=== PATIENT | male | born 1985 | race Caucasian/White ===

== ENCOUNTER 2025-03-18 20:48 | Inpatient (IN) | payer OTHER, SELFPAY ==
[2025-03-18] VITALS (13 sets, daily range): BP systolic 101–194; BP diastolic 58–121; BMI 33.9
[2025-03-18 16:17] LABS: Urine Character Clear (Clear)
[2025-03-18 16:20] LABS: Hematocrit 47.1 % (39.0-52.0); Hemoglobin 15.6 g/dL (13.0-18.0); Mean Corp Hgb Conc. 33.1 g/dL (33.0-37.0); Mean Corpuscular Volume 92.5 fL (80.0-94.0); Nucleated Red Blood Cells % 0 % (-); Platelet Count 242 10^3/uL (130-400); Red Cell Dist. Width 12.7 % (11.5-14.5)
[2025-03-18 16:33] LABS: Urine Red Blood Cell 0-2 /HPF (0-2); Urine Squamous Cell 0-2 /LPF (Few); Urine White Cell 0-2 /HPF (0-5)
[2025-03-18 16:35] LABS: ALT (SGPT) 55 U/L (0-50); AST (SGOT) 28 U/L (17-59); Albumin 5.2 g/dl (3.5-5.0); Alkaline Phosphatase 126 U/L (38-126); Blood Urea Nitrogen 15 mg/dl (9-20); Calcium 10.2 mg/dl (8.4-10.2); Carbon Dioxide 27 mmol/L (22-30); Chloride 102 mmol/L (98-107); Glucose 108 mg/dl (70-99); Potassium 4.3 mmol/L (3.5-5.1); Sodium 135 mmol/L (135-145); Total Protein 8.0 g/dl (6.3-8.2); eGFR > 60.00
[2025-03-18] MEDS: NSS 1000 IV ×2 (19:04→21:58)
[2025-03-18] MEDS: VALIUM INJECTION 5 MG IV ×3 (19:05→21:08)
[2025-03-18] MEDS: ZOFRAN 4 MG IV (19:05)
--- NOTE | 2025-03-18 19:18 | ED.GENMED ---
History of Present Illness
<Jose Oliva PA-C - Last Filed: 03/18/25 23:52>
General
Chief Complaint: Alcohol Problem
Source: patient
Time Seen by Provider: 03/18/25 18:16
History of Present Illness
History of Present Illness:
40-year-old male with past medical history of ADHD, anxiety, depression, chronic substance use presenting to the ER for evaluation looking for treatment for both alcohol and opioid abuse. Patient states that his last drink was last night and last
time using a Percocet was at least 2 nights ago. He notes that he has been using this heavily for about 3 to 4 months. He had already arranged for a bed at [facility] however due to a history of withdrawal seizures they recommended he come to the ER
for medical evaluation first. Patient endorses nausea but no active vomiting, tremors and feeling very anxious. No other concerns presently. Denies any SI or HI
Past History
<Jose Oliva PA-C - Last Filed: 03/18/25 23:52>
Past History
ED Past Medical History: Psychiatric (a/d, substance abuse on suboxone)
ED Past Surgical History: Orthopedic
Social History
Tobacco: Smoker
Alcohol: Chronic alcoholic
Drug: Marijuana and Narcotics
Personal: Single
Living: alone
Employment: Employed
Family History
Family History: Unable to obtain
Review of Systems
<Jose Oliva PA-C - Last Filed: 03/18/25 23:52>
Review of Systems
All Other Systems: ROS reviewed and negative except as documented in HPI and ROS
Phy Exam
<Jose Oliva PA-C - Last Filed: 03/18/25 23:52>
Physical Exam
Physical Exam:
GENERAL: Alert , in no apparent distress, anxious, tremulous, appears older than stated age
EYE: clear conjunctiva b/l
HEAD: NCAT
ENT: o/p clr, mmm.
CARDIAC: Regular rate and rhythm .
LUNGS: Clear breath sounds bilaterally, no acute respiratory distress, no wheezes/rales/rhonchi
ABDOMEN: Soft, without focal tenderness, no r/g, no cvat
NEUROLOGICAL: Alert and oriented
SKIN: Warm and dry, skin intact.
MUSCULOSKELETAL: No edema, well perfused.
PSYCH: Normal and appropriate interaction.
Scores
<Jose Oliva PA-C - Last Filed: 03/18/25 23:52>
Heart Failure Risk
Heart Failure Risk Score: Not Applicable
Heart Score for Chest Pain Patients
STEMI patient?: Not applicable
Withdrawal Assessment of Alcohol
Withdrawal Assessment Completed?: Yes
Nausea and Vomiting: Intermittent nausea with dry heaves
Tactile Disturbances: Mild itching, pins and needles, burning or numbness
Tremor: Moderate, with patient's arms extended
Auditory Disturbances: Not present
Paroxysmal Sweats: Beads of sweat obvious on forehead
Visual Disturbances: Not present
Anxiety: Mild anxiety
Headache, Fullness in Head: Not present
Agitation: Moderately fidgety and restless
Orientation and clouding of sensorium: Oriented and can do serial additions
Total CIWA Score: 19
Alcohol Withdrawal Medication Recommendation: Equal to MSAS Score 8-11. Lorazepam 1-2mg IV NOW & re-assess q1hr
<Hilario Alberto DO - Last Filed: 03/18/25 19:51>
Withdrawal Assessment of Alcohol
Total CIWA Score: 19
Alcohol Withdrawal Medication Recommendation: Equal to MSAS Score 8-11. Lorazepam 1-2mg IV NOW & re-assess q1hr
Course
<Jose Oliva PA-C - Last Filed: 03/18/25 23:52>
Orders/Labs/Results
Orders:
Orders
03/18/25 Dinner
Regular
At Your Request: Full Participation
Does patient need a safe tray?: No
03/18/25 16:03
Alcohol Urgent
Complete Blood Count/With Diff Urgent
Comprehensive Metabolic Panel Urgent
03/18/25 16:06
Fentanyl, Urine Urgent
Urinalysis Urgent
Date Specimen was Collected: 03/18/25
Time Specimen was Collected: 16:04
Urine Drug Abuse Screen Urgent
Date Specimen was Collected: 03/18/25
Time Specimen was Collected: 16:04
Urine Microscopic Urgent
Date Specimen was Collected: 03/18/25
Time Specimen was Collected: 16:04
03/18/25 18:51
0.9% Sodium Chloride 1000 ml [Nss] 1,000 ml IV BOLUS
Ondansetron Injectable [Zofran] 4 mg IV NOW STA
diazePAM [Valium Injection] 5 mg IV NOW STA
03/18/25 18:52
Electrocardiogram (*1) Urgent
Reason for Study: QTc Monitoring
EKG- Treatment ONCE
03/18/25 19:00
Alcohol Urgent
Magnesium Urgent
03/18/25 19:38
diazePAM [Valium Injection] 5 mg IV NOW STA
03/18/25 19:39
diazePAM [Valium Injection] 10 mg .ROUTE .STK-MED ONE
03/18/25 19:40
Clonidine [Catapres] 0.1 mg PO NOW STA
03/18/25 20:02
Electrocardiogram (*1) Routine
Reason for Study: QTc Monitoring
Comment: if not already done in ED
Naloxone [Narcan] 0.4 mg IV Q5MPRN PRN
Oxycodone [Roxicodone] 20 mg PO Q4HPRN PRN
Tizanidine [Zanaflex] 2 mg PO Q6HPRN PRN
Clinical Opioid Withdrawal Scale (COWS) Q4
Frequency:: now, Q4 hours x 24 hours, then PRN based on symptoms
03/18/25 20:03
Electrocardiogram (*1) Routine
Reason for Study: QTc Monitoring
Comment: if not already done in ED
03/18/25 20:06
Ipratropium/Albuterol Sulfate [Duoneb] 3 ml INH R NOW ONE
03/18/25 20:07
CR Chest - 2 Views Urgent
Comment:
Reason For Exam: wheezing
03/18/25 20:12
Xopenex Reason for Use As Directed
Reason for ordering Xopenex instead of Albuterol: tachycardia
03/18/25 20:13
FOLic ACID [Folvite] 1 mg 0.9% Sodium Chloride 50 ml [Nss] 50 ml IV DAILYPRN
03/18/25 20:14
MSAS SCORE As Directed
MSAS Score 0-4: Repeat MSAS every 2 hours until 0-4 for three consecutive assessments, then every 4 hours x 48
hours.
MSAS Score 5-7: For MILD withdrawl symptoms. Repeat MSAS and RASS every 2 hours
MSAS Score 8-11: For MODERATE withdrawal symptoms. Repeat MSAS and RASS every 1 hour. Consider ICU or IMU
level of care.
MSAS Score > 11: For SEVERE withdrawal symptoms. Repeat MSAS and RASS every 1 hour. Notify provider, consider
ICU level of care.
MSAS Additional Instructions: If no improvement or no decrease in score from severe to moderate within 12
hours, consult psychiatry
MSAS Notify Provider: Notify provider if patient requires more than 10 mg of Lorazepam in eight hour period.
03/18/25 20:17
Admit/Transfer Patient As Directed
Co-Sign Provider:
Level of Care: Inpatient admission
Assign to:: ICU
Physician / Group: leesa lino
Diagnosis: alcohol withdrawal/opiate withdrawal, chem bronchitis
Reason for Hospitalization: alcohol withdrawal/opiate withdrawal, chem bronchitis
Expected length of stay greater than two midnights?: Yes
ELOS- Estimated Length of Stay in days: 5
I certify the patient meets the requirements for IP care: Yes
Code Status As Directed
Resuscitation Status: Full Code
03/18/25 20:20
PRN Pain Medication Management As Directed
May give lesser potent ordered pain med per pt: Yes
preference::
Protocol:: Medication orders for pain may be administered in a
manner that supports deferring to patient preference
when the pt is:
- Requesting an ordered lesser potent pain medication.
Least to most potent pain medications are defined
as: acetaminophen < NSAID < tramadol < opioids
(morphine, oxycodone, hydromorphone).
- Requesting a lesser dose of the same medication IF
ORDERED.
- Requesting a less intrusive route of administration
if both routes are prescribed by the provider (PO <
IV).
03/18/25 20:21
Albuterol Nebs [Ventolin Nebules] 2.5 mg INH R NOW STA
03/18/25 20:23
Admin Prog Coord Consult Routine
Consulting Provider: Cr Borden
Was physician already notified: Yes
Reason for consult: etoh opiate withdrawal
03/18/25 20:24
B-Hydroxybutyrate Urgent
GGTP Urgent
Magnesium Urgent
Phosphorus Urgent
03/18/25 20:25
Add On- LAB Urgent
Tests Added?: FENTANYL URINE
03/18/25 21:00
Flush (0.9% Sodium Chloride) [Flush (Nss)] See Dose Instructions IV PER PROTOCOL
03/18/25 21:23
0.9% Sodium Chloride 1000 ml [Nss] 1,000 ml IV 100 mls/hr
Acetaminophen [Tylenol] 650 mg PO Q4HPRN PRN
Bisacodyl [Dulcolax] 10 mg RECTAL [id number] PRN
Docusate W/Senna [Senokot-S] 1 tablet PO BIDPRN PRN
Polyethylene Glycol Powder [Miralax] 17 grams PO DAILYPRN PRN
03/18/25 21:23
Activity As Directed
Activity Level: As Tolerated
Vital Signs As Directed
Frequency: Per unit guidelines
Pulse Ox/spot Check [RESP] Routine
Quantity: 1
DX Deep Vein Thrombosis Video Routine
03/19/25 00:00
Buprenorphine HCl [Belbuca] 300 mcg BUCCAL Q4
Oxycodone Controlled Release [Oxycontin (Controlled Release)] 40 mg PO Q8
Thiamine Injection 200 mg IV Q8
03/19/25 06:00
Complete Blood Count/With Diff IN AM
Comprehensive Metabolic Panel IN AM
Rpzya-Hhba-Hrxxtrn IN AM
03/19/25 08:00
FOLic ACID [Folvite] 1 mg PO DAILY
Ipratropium/Albuterol Sulfate [Duoneb] 3 ml INH R QID
03/19/25 18:00
Enoxaparin Sodium [Lovenox] 40 mg SC QPM
03/19/25 22:00
Buprenorphine [Subutex] 2 mg SL QID
03/20/25 06:00
Complete Blood Count/With Diff IN AM
Comprehensive Metabolic Panel IN AM
03/20/25 22:00
Buprenorphine [Subutex] 4 mg SL QID
03/21/25 00:00
Oxycodone Controlled Release [Oxycontin (Controlled Release)] 20 mg PO Q8
03/21/25 06:00
Complete Blood Count/With Diff IN AM
Comprehensive Metabolic Panel IN AM
03/21/25 20:02
Buprenorphine [Subutex] 2 mg SL Q4HPRN PRN
03/22/25 06:00
Complete Blood Count/With Diff IN AM
Comprehensive Metabolic Panel IN AM
03/22/25 08:00
Buprenorphine [Subutex] 8 mg SL BID@799,1999
Thiamine HCl [Vitamin B1] 100 mg PO BID
03/23/25 08:00
Buprenorphine [Subutex] 16 mg SL DAILY@0800
Abnormal Lab Results
03/18/25 03/18/25 03/18/25
16:03 16:06 20:24
WBC 11.6 H 10^3/uL
(4.8-10.8)
MPV 10.8 H fL
(7.4-10.4)
Absolute Neuts (auto) 8.8 H 10^3/uL
(1.4-6.5)
Absolute Monos (auto) 0.8 H 10^3/uL
(0.1-0.6)
Neutrophils % 75.7 H %
(42.2-75.2)
Lymphocytes % 15.3 L %
(20.5-51.1)
Glucose 108 H mg/dl
(70-99)
GGT 271 H U/L
(15-73)
ALT 55 H U/L
(0-50)
Albumin 5.2 H g/dl
(3.5-5.0)
Urine Albumin 1+ A
(Neg - Trace)
U Marijuana (THC) Screen Positive H
(Negative)
B-Hydroxybutyrate 0.47 H mmol/L
(0.02-0.27)
03/18/25 16:03
03/18/25 16:03
Vital Signs
Initial and Last Documented VS:
Initial Vital Signs
Temp
98.1 F
03/18/25 15:50
Last Documented Vital Signs
Temp Pulse Resp BP Pulse Ox
98.1 F 64 16 107/73 89
03/18/25 15:50 03/18/25 23:15 03/18/25 23:15 03/18/25 23:00 03/18/25 23:15
<Hilario Alberto, DO - Last Filed: 03/18/25 19:51>
Orders/Labs/Results
Orders:
Orders
03/18/25 Dinner
Regular
At Your Request: Full Participation
Does patient need a safe tray?: No
03/18/25 16:03
Alcohol Urgent
Complete Blood Count/With Diff Urgent
Comprehensive Metabolic Panel Urgent
03/18/25 16:06
Fentanyl, Urine Urgent
Urinalysis Urgent
Date Specimen was Collected: 03/18/25
Time Specimen was Collected: 16:04
Urine Drug Abuse Screen Urgent
Date Specimen was Collected: 03/18/25
Time Specimen was Collected: 16:04
Urine Microscopic Urgent
Date Specimen was Collected: 03/18/25
Time Specimen was Collected: 16:04
03/18/25 18:51
0.9% Sodium Chloride 1000 ml [Nss] 1,000 ml IV BOLUS
Ondansetron Injectable [Zofran] 4 mg IV NOW STA
diazePAM [Valium Injection] 5 mg IV NOW STA
03/18/25 18:52
Electrocardiogram (*1) Urgent
Reason for Study: QTc Monitoring
EKG- Treatment ONCE
03/18/25 19:00
Alcohol Urgent
Magnesium Urgent
03/18/25 19:38
diazePAM [Valium Injection] 5 mg IV NOW STA
03/18/25 19:39
diazePAM [Valium Injection] 10 mg .ROUTE .STK-MED ONE
03/18/25 19:40
Clonidine [Catapres] 0.1 mg PO NOW STA
03/18/25 20:02
Electrocardiogram (*1) Routine
Reason for Study: QTc Monitoring
Comment: if not already done in ED
Naloxone [Narcan] 0.4 mg IV Q5MPRN PRN
Oxycodone [Roxicodone] 20 mg PO Q4HPRN PRN
Tizanidine [Zanaflex] 2 mg PO Q6HPRN PRN
Clinical Opioid Withdrawal Scale (COWS) Q4
Frequency:: now, Q4 hours x 24 hours, then PRN based on symptoms
03/18/25 20:03
Electrocardiogram (*1) Routine
Reason for Study: QTc Monitoring
Comment: if not already done in ED
03/18/25 20:06
Ipratropium/Albuterol Sulfate [Duoneb] 3 ml INH R NOW ONE
03/18/25 20:07
CR Chest - 2 Views Urgent
Comment:
Reason For Exam: wheezing
03/18/25 20:12
Xopenex Reason for Use As Directed
Reason for ordering Xopenex instead of Albuterol: tachycardia
03/18/25 20:13
FOLic ACID [Folvite] 1 mg 0.9% Sodium Chloride 50 ml [Nss] 50 ml IV DAILYPRN
03/18/25 20:14
MSAS SCORE As Directed
MSAS Score 0-4: Repeat MSAS every 2 hours until 0-4 for three consecutive assessments, then every 4 hours x 48
hours.
MSAS Score 5-7: For MILD withdrawl symptoms. Repeat MSAS and RASS every 2 hours
MSAS Score 8-11: For MODERATE withdrawal symptoms. Repeat MSAS and RASS every 1 hour. Consider ICU or IMU
level of care.
MSAS Score > 11: For SEVERE withdrawal symptoms. Repeat MSAS and RASS every 1 hour. Notify provider, consider
ICU level of care.
MSAS Additional Instructions: If no improvement or no decrease in score from severe to moderate within 12
hours, consult psychiatry
MSAS Notify Provider: Notify provider if patient requires more than 10 mg of Lorazepam in eight hour period.
03/18/25 20:17
Admit/Transfer Patient As Directed
Co-Sign Provider:
Level of Care: Inpatient admission
Assign to:: ICU
Physician / Group: leesa lino
Diagnosis: alcohol withdrawal/opiate withdrawal, chem bronchitis
Reason for Hospitalization: alcohol withdrawal/opiate withdrawal, chem bronchitis
Expected length of stay greater than two midnights?: Yes
ELOS- Estimated Length of Stay in days: 5
I certify the patient meets the requirements for IP care: Yes
Code Status As Directed
Resuscitation Status: Full Code
03/18/25 20:20
PRN Pain Medication Management As Directed
May give lesser potent ordered pain med per pt: Yes
preference::
Protocol:: Medication orders for pain may be administered in a
manner that supports deferring to patient preference
when the pt is:
- Requesting an ordered lesser potent pain medication.
Least to most potent pain medications are defined
as: acetaminophen < NSAID < tramadol < opioids
(morphine, oxycodone, hydromorphone).
- Requesting a lesser dose of the same medication IF
ORDERED.
- Requesting a less intrusive route of administration
if both routes are prescribed by the provider (PO <
IV).
03/18/25 20:21
Albuterol Nebs [Ventolin Nebules] 2.5 mg INH R NOW STA
03/18/25 20:23
Admin Prog Coord Consult Routine
Consulting Provider: Cr Borden
Was physician already notified: Yes
Reason for consult: etoh opiate withdrawal
03/18/25 20:24
B-Hydroxybutyrate Urgent
GGTP Urgent
Magnesium Urgent
Phosphorus Urgent
03/18/25 20:25
Add On- LAB Urgent
Tests Added?: FENTANYL URINE
03/18/25 21:00
Flush (0.9% Sodium Chloride) [Flush (Nss)] See Dose Instructions IV PER PROTOCOL
03/18/25 21:23
0.9% Sodium Chloride 1000 ml [Nss] 1,000 ml IV 100 mls/hr
Acetaminophen [Tylenol] 650 mg PO Q4HPRN PRN
Bisacodyl [Dulcolax] 10 mg RECTAL [id number] PRN
Docusate W/Senna [Senokot-S] 1 tablet PO BIDPRN PRN
Polyethylene Glycol Powder [Miralax] 17 grams PO DAILYPRN PRN
03/18/25 21:23
Activity As Directed
Activity Level: As Tolerated
Vital Signs As Directed
Frequency: Per unit guidelines
Pulse Ox/spot Check [RESP] Routine
Quantity: 1
DX Deep Vein Thrombosis Video Routine
03/19/25 00:00
Buprenorphine HCl [Belbuca] 300 mcg BUCCAL Q4
Oxycodone Controlled Release [Oxycontin (Controlled Release)] 40 mg PO Q8
Thiamine Injection 200 mg IV Q8
03/19/25 06:00
Complete Blood Count/With Diff IN AM
Comprehensive Metabolic Panel IN AM
Akaei-Vrrt-Vhouimj IN AM
03/19/25 08:00
FOLic ACID [Folvite] 1 mg PO DAILY
Ipratropium/Albuterol Sulfate [Duoneb] 3 ml INH R QID
03/19/25 18:00
Enoxaparin Sodium [Lovenox] 40 mg SC QPM
03/19/25 22:00
Buprenorphine [Subutex] 2 mg SL QID
03/20/25 06:00
Complete Blood Count/With Diff IN AM
Comprehensive Metabolic Panel IN AM
03/20/25 22:00
Buprenorphine [Subutex] 4 mg SL QID
03/21/25 00:00
Oxycodone Controlled Release [Oxycontin (Controlled Release)] 20 mg PO Q8
03/21/25 06:00
Complete Blood Count/With Diff IN AM
Comprehensive Metabolic Panel IN AM
03/21/25 20:02
Buprenorphine [Subutex] 2 mg SL Q4HPRN PRN
03/22/25 06:00
Complete Blood Count/With Diff IN AM
Comprehensive Metabolic Panel IN AM
03/22/25 08:00
Buprenorphine [Subutex] 8 mg SL BID@0800,2000
Thiamine HCl [Vitamin B1] 100 mg PO BID
03/23/25 08:00
Buprenorphine [Subutex] 16 mg SL DAILY@0800
Abnormal Lab Results
03/18/25 03/18/25 03/18/25
16: 16:06 20:24
WBC 11.6 H 10^3/uL
(4.8-10.8)
MPV 10.8 H fL
(7.4-10.4)
Absolute Neuts (auto) 8.8 H 10^3/uL
(1.4-6.5)
Absolute Monos (auto) 0.8 H 10^3/uL
(0.1-0.6)
Neutrophils % 75.7 H %
(42.2-75.2)
Lymphocytes % 15.3 L %
(20.5-51.1)
Glucose 108 H mg/dl
(70-99)
GGT 271 H U/L
(15-73)
ALT 55 H U/L
(0-50)
Albumin 5.2 H g/dl
(3.5-5.0)
Urine Albumin 1+ A
(Neg - Trace)
U Marijuana (THC) Screen Positive H
(Negative)
B-Hydroxybutyrate 0.47 H mmol/L
(0.02-0.27)
03/18/25 16:03
03/18/25 16:03
Vital Signs
Initial and Last Documented VS:
Initial Vital Signs
Temp
98.1 F
03/18/25 15:50
Last Documented Vital Signs
Temp Pulse Resp BP Pulse Ox
98.1 F 64 16 107/73 89
03/18/25 15:50 03/18/25 23:15 03/18/25 23:15 03/18/25 23:00 03/18/25 23:15
<Jose Oliva PA-C - Last Filed: 03/18/25 23:52>
MDM/Problems Addressed
Differential Diagnosis Includes:
Acute ETOH/Opiate withdrawal
Electrolyte imbalane
Dehydration
Cardiac Dysrhythmia
MDM/Problems Addressed:
40-year-old male presenting to the ER for evaluation of substance abuse withdrawal. History of alcohol related withdrawal seizures. He has already obtained a bed at [facility] but they were concerned for an acute withdrawal and potential for seizures
so sent him to the ER to be further evaluated. Current CIWA score of 19. Will treat with IV valium, Zofran and IVF. If stabilizes will attempt to get directly to his pre-arrainged substance abuse inpatient treatment
Chronic conditions affecting care: Other (Alcohol/substance abuse)
Acute Exacerbation and/or Progression of Chronic Illness: Other (Alcohol/substance abuse)
<Jose Oliva PA-C - Last Filed: 03/18/25 23:52>
*Pulse Oximetry
SaO2: 96
Oxygen Mode of Delivery: Room air
Patient hypoxic: no
*EKG
Interpreted by ED Provider?: Yes
Heart Rate: 73
Rate: normal
Rhythm: sinus
Ischemia: no ischemia
*Laminating Machine Operator Interpretation
Rate: normal
Heart Rate: 81
Rhythm: sinus
*Critical Care Note
Total Time (30-74mins, 75-104mins- exclusive of procedures): 32
comment:
Critical care statement: A total of 32 minutes of critical care time was provided for this patient. This includes management of unstable vital signs, evaluation of the patient at bedside, reviewing the patient's pertinent medical records, discussion
with consultants, review of old EKGs and review of pertinent medical records. This time with separate from time utilized to perform the aforementioned documented procedures
Data Reviewed
Review of Other/Old Records Reveals: Labs, Records and Discharge Summary
<Jose Oliva PA-C - Last Filed: 03/18/25 23:52>
Patient Management
Discussion with other providers: Hospitalist
Escalation/DeEscalation of care consider admission/obs:
Despite initial medications patient remains in significant withdrawal. Additional 5 mg of Valium ordered. Due to concern for further withdrawals and history of seizure will plan for admission. Hospitalist team aware and accepts.
ED Attending Note
<Jsoe Oliav PA-C - Last Filed: 03/18/25 23:52>
-
Portions of this chart may have been created with voice recognition software.� Occasional wrong word or��sound alike� substitutions may have occurred due to the inherent limitations of voice recognition software.
<Hilario Alberto DO - Last Filed: 03/18/25 19:51>
ED Attending Note
Patient seen and examined by attending physician: Yes
I performed the substantive portion of visit, reviewed & personally made and approve the management plan that is documented in note by myself or GINO.: Yes
ED Attending Note:
I have seen and evaluated the patient with a [id number] encounter. I have spoken to the advance practicer provider and involved in the medical history, the physical exam, medical decision making.
Evaluation and management service: agree unless noted differently below.
Results interpretation: agree unless noted differently below.
Focused HPI: 40-year-old male presenting to the requesting detox. Patient presents in alcohol withdrawal
Physical exam: Very tremulous and anxious. Tachycardic
Medical Decision Making: Patient required multiple doses of Valium intravenously. Patient will require admission for significant alcohol withdrawal.
Discharge Plan
Departure
Patient Disposition: Admit
Date of Disposition: 03/18/25
Time of Disposition: 19:39
Presentation/result/management discussed w/ accepting MD/DO: Hospitalist
Discharge Problem:
Alcohol withdrawal, Opiate withdrawal
Interventions
Interventions:
*Risk Screen - Suicide Last Done: 03/18/25 16:18
*General Assessment Last Done: 03/18/25 19:08
*Neglect/Abuse Screening Last Done: 03/18/25 19:08
*ED- Fall Risk Assessment Last Done: 03/18/25 19:08
*ED COVID-19 Vaccine History Last Done: 03/18/25 19:08
*ED Influenza Vaccine History Last Done: 03/18/25 19:08
*Nursing Disposition Last Done: 03/18/25 21:33
ED- Neurological Assessment Last Done: 03/18/25 19:08
ED-Psychological Assessment Last Done: 03/18/25 19:08
Discharge Date and Time
Discharge Date/Time: 03/18/25 21:34
--- NOTE | 2025-03-18 19:43 | W.PN.UPDATE ---
Update Note
Progress Note Update
This note serves as an addendum to the H&P by seed trucker Gera Gruber
HPI
40M current smoker HX WD Sz, chronic polysubstance use disorder, chr Suboxone, ETOH use disorder, HX ADHD, anxiety, depression seen at ER:
- for evaluation looking for treatment for both alcohol and opioid abuse.
- last drink was last night and last time using a Percocet was at least 2 nights ago. He notes that he has been using this heavily for about 3 to 4 months.
- reports nausea
- no active vomiting
- tremors and feeling very anxious.
Denies any SI or HI
Relevant VS
03/18/25
15:50 03/18/25
18:48 03/18/25
19:00
Temp route: Oral
Pulse 75
Resp Rate 19
Blood pressure 194/110 159/115
SaO2 96
Oxygen Mode of Delivery RA
PE
Not toxic looking
Gen: anxious, Nervous , Tremulous
HEENT:anicteric
Neck: supple
Lungs: diffuse I/E wheeze
Cor: Not tachycardic
Abdomen:�soft
STOCK SPECULATOR: AAO3
Psych: anxious
Relevant Data
03/18/25
16:03
WBC 11.6 H
Hgb 15.6
MCV 92.5
Plt Count 242
03/18/25 03/18/25
16:03 19:00
Sodium 135
Potassium 4.3
Chloride 102
Carbon Dioxide 27
BUN 15
Creatinine 0.8
eGFR > 60.00
Calcium 10.2
Magnesium 2.2
Total Bilirubin 0.5
AST 28
ALT 55 H
Alkaline Phosphatase 126
03/18/25 03/18/25
16:06 19:00
Ur Buprenorphine Negative
Ur Amphetamines Screen Negative
U Methamphetamines Scrn Negative
U Benzodiazepines Scrn Negative
Urine Cocaine Screen Negative
U Marijuana (THC) Screen Positive H
Alcohol, Quantitative None detected
EKG
NORMAL SINUS RHYTHM
NORMAL ECG
WHEN COMPARED WITH ECG OF 09-Mar-2023 19:51,NO SIGNIFICANT CHANGE WAS FOUND
Last hospitalist admission: 03/09/23 - 03/12/23
Principal Diagnosis: ETOH withdrawal
ASSESSMENT & PLAN
Pending Rx reconciliation
Early ETOH withdrawal syndrome : high risk for seizures/DTs
HX ETOH WD seizures
- close monitoring at ICU
- cont MSAS
- start phenobarbital protocol
- thiamine, folate, MVI
- [employer]ista and Psych consult
HX chr poly Substance abuse - with suspect Opiate WDS
- reports using on line ordered KRATOM ( Opiate receptor binding agent _ Mitragynine & 7 hydroxytetracycline ) which substitute for Percocet 30mg ( used 120 to 150mg daily)
- Inpatient Opiates WD protocol- Microinduction of Buprenorphine
Acute reactive AW dz probably chemical bronchitis with bronchospasm
- Wheezing
- Vaping Marijuana
- CXR
- Neb Xopenex PRN
DVT prophylaxis-On Lovenox
Code: Full
ICU
Total Critical Care Time__45___ minutes.
I was immediately available to the patient and staff. I personally examined, reviewed labs, diagnostic images/reports, interpretations, treatment plans, discussed patient care with other providers and family or caregivers (if patient is unable to
make decisions), entered orders as appropriate and documented the medical record.
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
[2025-03-18 19:46] LABS: Magnesium 2.2 mg/dl (1.6-2.3)
[2025-03-18] MEDS: CATAPRES 0.1 MG PO (19:49)
[2025-03-18 21:06] LABS: GGTP 271 U/L (15-73); Magnesium 2.0 mg/dl (1.6-2.3)
[2025-03-18] MEDS: NICODERM TRANSDERMAL 21 MG TRANSDERM (21:51)
[2025-03-18] MEDS: PHENOBARBITAL 104 MG IV (21:59)
--- NOTE | 2025-03-18 23:24 | PTCARENOTE ---
on assessment pt AAOx3, restless, denies chest pain, c/o SOB at rest, pt 94% RA, nebs ordered, reg diet, nauseous at times, no vomiting, COWS 18 and MSAS 8, report given to DNA ANALYST, call camargo in reach
[2025-03-19] VITALS (33 sets, daily range): BP systolic 91–151; BP diastolic 45–112
[2025-03-19 00:40] LABS: COVID-19 Antigen Negative (Negative)
[2025-03-19] MEDS: VALIUM INJECTION 5 MG IV ×4 (00:49→21:07)
[2025-03-19] MEDS: ZOFRAN 4 MG IV (00:50)
[2025-03-19] MEDS: SEROQUEL 200 MG PO ×2 (01:46→22:28)
[2025-03-19] MEDS: ROXICODONE 20 MG PO ×4 (01:46→14:30)
[2025-03-19] MEDS: BELBUCA 300 MCG BUCCAL ×6 (05:05→20:35)
[2025-03-19] MEDS: NSS 1000 IV ×2 (05:58→16:32)
[2025-03-19 06:19] LABS: Hematocrit 43.7 % (39.0-52.0); Hemoglobin 14.4 g/dL (13.0-18.0); Mean Corp Hgb Conc. 33.0 g/dL (33.0-37.0); Mean Corpuscular Volume 93.0 fL (80.0-94.0); Nucleated Red Blood Cells % 0 % (-); Platelet Count 179 10^3/uL (130-400); Red Cell Dist. Width 12.6 % (11.5-14.5)
[2025-03-19 06:20] LABS: ALT (SGPT) 40 U/L (0-50); AST (SGOT) 23 U/L (17-59); Albumin 4.4 g/dl (3.5-5.0); Alkaline Phosphatase 87 U/L (38-126); Blood Urea Nitrogen 14 mg/dl (9-20); Calcium 9.1 mg/dl (8.4-10.2); Carbon Dioxide 27 mmol/L (22-30); Chloride 107 mmol/L (98-107); Estimated Creatinine Clearance > 125 ml/min; Glucose 95 mg/dl (70-99); Potassium 4.3 mmol/L (3.5-5.1); Sodium 140 mmol/L (135-145); Total Protein 6.6 g/dl (6.3-8.2); eGFR > 60.00
[2025-03-19] MEDS: DUONEB 3 ML INH (07:52)
[2025-03-19] MEDS: OXYCONTIN (CONTROLLED RELEASE) 40 MG PO ×3 (08:18→16:30)
[2025-03-19] MEDS: FOLVITE 1 MG PO (08:18)
[2025-03-19] MEDS: THIAMINE INJECTION 200 MG IV ×3 (08:19→16:31)
[2025-03-19] MEDS: PHENOBARBITAL 97.5 MG IV ×3 (08:19→22:29)
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
--- NOTE | 2025-03-19 11:48 | PTCARENOTE ---
Pt frequently requesting PRN meds for 'the shakes', Reviewed meds with pt. Discussed standing meds and PRN meds ordered. PRN meds given when able. Pt remains cooperative, assessment unchanged.
--- NOTE | 2025-03-19 11:59 | CS.PSYCHR ---
Consult Summary - Psychiatry
-
Patient seen by me on 03/19/2025 from 11:40am-11:59am
Psychiatry consult for severe alcohol/opiate use disorder and withdrawal. 40 yo male admitted 03/18/2025 for alcohol and opiate withdrawal. The patient reports he has been drinking 1/5 of vodka a day +8 shots of vodka along with Kratom 1 tab every 3
hours totaling 640 mg a day when he is unable to get his Percocet 30 mg 4 to 5 tablets 120 to 150 mg/day. He also vapes marijuana and smokes cigarettes. His last drink use was morning of 03/18/2025. Patient states he has a bed being held for his at
[facility] rehab but that he needs to be detoxed first. He states alcohol and opiates are jeopardizing his finances, job, relationship with his daughter and that he needs to get clean. His longest clean time was [id number] during which time he did AA
and kept a busy schedule. His last rehab was a year ago and he states he did well for a while on Sublocade but then relapsed.
He reports a history of bipolar disorder and being prescribed prozac and seroquel in the past but says he has not taken it them in a long time and does not know the doses. he acknowledges the difficulty in identifying and treating a mood disorder in
the context of active D&A use.
MSE- good eye contact. fluent spontaneous speech. logical and goal directed. depressed mood. constricted affect. denies SI/HI/AVH. no delusions. limited insight and judgement. fully oriented
PMH- alcohol and opiate withdrawal
family history- denies family substance abuse history
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 has two daughters agest 8 and 11, only one of whom is in his life
Psych history- see HPI
D&A history- see HPI
A/P- 40 yo male with severe alcohol and opiate use disorder and withdrawal as well as bipolar disorder history. Continue current withdrawal protocols. Appropriate candidate for inpatient rehab when medically stable. Has bed being held at [facility].
Would not start any psychiatric medications without a proper assessment/diagnosis once patient is sober.
[2025-03-19] MEDS: PRECEDEX 100 IV ×2 (13:55→22:36)
--- NOTE | 2025-03-19 14:13 | PTCARENOTE ---
Pt continues to ask for PRN meds, nothing due at the time. Increased anxiety, Dr. Borden in to see pt. Precedex gtts ordered and started
--- NOTE | 2025-03-19 15:13 | CM ---
Met with patient who says he has contacted [facility] to go for drug and alcohol inpatient treatment. He says he has bed in [facility]. Discussed [facility] in [place]. He would like to go there if possible as it is close to his family in
[place]. Spoke to [facility] intake. Per [facility] staff no detox at [place] site and they felt insurance would not pay for detox again since it is being addressed inpatient at . CLinical to be faxed to [phone] or emailed to
[email or web address] to fax clinical today. Cm updated attending verbally.
[facility]
--- NOTE | 2025-03-19 16:38 | W.PN.HOSP.TC ---
Addendum entered and electronically signed by Kylah Almodovar MD 03/19/25 17:52:
I saw and evaluated the patient independently. I reviewed and discussed the resident�s note and agree with findings and plan as documented by Dr. Penaloza.
GENERAL: well developed, well nourished, male in no apparent distress
HEENT: NC/AT
HEART: regular rate and rhythm, +S1, +S2
LUNGS : wheezes bilaterally
ABDOM: soft, nontender, nondistended, + bowel sounds
EXT: no cyanosis, clubbing, or edema
NEUROLOGIC: tremors and restless
Chronic alcohol abuse/dependency with withdrawal symptoms--cont MSAS, thiamine, folate, IVF, antiemetics--daily / of vodka--phenobarbital taper--want inpt detox and has a bed at [facility]--started Precedex--apprec psych/auto radiator specialist
Opioid dependency with withdrawal symptoms due to kratom, Percocet use--cont COWS protocol and buprenorphine microdosing (pt takes 4-5 pills of 30mg oxycodone daily, plus Kratom)--Imodium, zofran, clonidine--watch QTc
Left upper quadrant abdominal pain associated with diarrhea-- Abdominal x-ray shows nonobstructive intestinal bowel gas pattern, widespread colonic stool --cancel Imodium and order MiraLAX + senna
Diffuse wheezing bilaterally--likely from smoking/vaping--cont duonebs, IS
Nicotine abuse-- Continue on nicotine patch--Dr. Penaloza counselled pt to quit smoking
Marijuana abuse-- Counseled on marijuana cessation
DVT proph
code status--FULL CODE
Original Note:
Today's Communication/Plan
-
monitor labs, monitor for withdrawal symptoms, monitor COWS score
Assessment / Plan
Assessment / Plan
Chronic alcohol abuse with mild withdrawal symptoms:
-Patient drinks whole bottle of vodka every day
- Has fine tremors on physical examination and seems anxious
- Continue patient on MSAS protocol
- Thiamine, folate, IV fluids, phenobarbital taper
- Monitor electrolytes,
- Regular diet
-Keep potassium above 4 and magnesium above 2
-Patient started on Precedex drip by auto radiator specialist for tremors and hypertension, will wean off as he clinically improves
- Consulted psychiatrist
- Intensivisit following
Opioid withdrawal symptoms due to kratom, Percocet use:
- Monitor COWS score every day, on arrival to ED it was 15 today it is 5 indicating mild withdrawal
- Continue microdosing buprenorphine
- For symptoms of opioid withdrawal such as diarrhea use loperamide, for nausea vomiting use Zofran, clonidine for autonomic hyperactivity
- Oxycodone as needed for pain
- Zanaflex as needed for diaphoresis and restlessness
Left upper quadrant abdominal pain associated with diarrhea:
- There is mild tenderness to left upper quadrant abdominal palpation
- Abdominal x-ray shows nonobstructive intestinal bowel gas pattern, widespread colonic stool which is consistent with overflow diarrhea due to retained stool, will cancel loperamide and order MiraLAX + senna
- Continue patient on IV fluids
Diffuse wheezing bilaterally:
- Differential diagnosis is asthma versus COPD versus bronchitis
- Encouraged incentive spirometer
- Ordered DuoNebs for patient to help relieve bronchoconstriction
Nicotine abuse:
- Continue on nicotine patch
Marijuana abuse:
- Counseled on marijuana cessation
Anticipated Discharge: 24 - 48 hours
Subjective/Interval History
-
Date of Service: March 19, 2025
40-year-old male with ADHD, anxiety, depression, chronic polysubstance abuse presents to the emergency room for alcohol and opioid detox. He said that his drinking was out of control. Last drink was 2 nights ago. He usually drinks a full bottle
of vodka every day along with kratom 1 tab every 3 hours when he is unable to get his hands on Percocet 100 2250 mg a day which is equivalent to 4 to 5 tablets. He also smokes 1 to 2 pack of cigarettes a day and occasionally marijuana as well. He
has been in rehab before for substance abuse in [place]. He has had withdrawal symptoms including multiple grand mal seizures before when he quit drinking alcohol although he cannot remember the exact dates. He has overdosed 2 times on heroin. He
does not know if he has any other medical conditions and does not know if he has been vaccinated for hepatitis B and C. On admission his GGT was elevated, chest x-ray was normal, EKG showed normal sinus rhythm. He was given 1 L normal send 0.9%, 5
mg diazepam, 0.1 mg clonidine, 4 mg Zofran. Patient states that he has a bed available at [facility] [place] [facility] for inpatient rehab, he just needs to be medically cleared here.
Today patient complains of mild tremors, watery diarrhea with abdominal pain, wheezing. No fever lacrimation, diarrhea, weight loss, hallucinations, altered mental status, weakness, numbness.
Objective Data
-
Labs:
Laboratory Results
03/19/25
05:49
WBC 5.8
Hgb 14.4
Hct 43.7
Plt Count 179 D
Sodium 140
Potassium 4.3
Chloride 107
Carbon Dioxide 27
BUN 14
Creatinine 0.8
Glucose 95
Calcium 9.1
Total Bilirubin 0.8
AST 23
ALT 40
Alkaline Phosphatase 87
Vital Signs:
Vital Signs
Temp Pulse Resp BP Pulse Ox
97.7 F 66 16 109/45 96
03/19/25 15:30 03/19/25 13:45 03/19/25 13:45 03/19/25 13:00 03/19/25 13:45
I&O
03/18/25 03/19/25 03/20/25
06:59 06:59 06:59
Intake Total 400 / 500 916.1 / 916.1
Output Total 300 / 300 650 / 650
Balance 100 / 200 266.1 / 266.1
Review of Systems
-
History Source: Patient
All other systems: Reviewed and negative
Physical Exam
-
General: Well Developed
Respiratory: Wheezes (Bilateral diffuse wheezes)
Cardiac: Regular Rhythm and S1/S2
GI: Soft, Nondistended, Normal Bowel Sounds and Other (Mild left upper quadrant tenderness)
Musculoskeletal: No Clubbing, No Cyanosis and No Edema
Skin: Warm and Dry
Neuro: AO x 3
Data Reviewed
-
Diagnostic Radiology: Report Reviewed by me and Discussed with Physician
Labs: Labs Reviewed by me and Discussed with Physician
[2025-03-19] MEDS: MIRALAX PO (17:47)
--- NOTE | 2025-03-19 18:00 | PTCARENOTE ---
Pt calmer with Precedex gtts, sleeping comfortably when undisturbed. Awakes with verbal stimuli.
[2025-03-19] MEDS: LOVENOX 40 MG SC (18:19)
[2025-03-19] MEDS: SENOKOT-S 1 TABLET PO (20:35)
[2025-03-19] MEDS: SUBUTEX 2 MG SL (22:29)
[2025-03-20] VITALS (20 sets, daily range): BP systolic 90–146; BP diastolic 59–102; BMI 33.3
[2025-03-20] MEDS: OXYCONTIN (CONTROLLED RELEASE) 40 MG PO ×3 (00:31→15:54)
[2025-03-20] MEDS: THIAMINE INJECTION 200 MG IV ×3 (00:31→15:54)
--- NOTE | 2025-03-20 00:37 | PTCARENOTE ---
Pat Aox3, SB on monitor, MSAS 1-4. COWS 2-3, PRN medications given as needed. Precedex being weaned as tolerated. patient appears comfortable at this time.
[2025-03-20] MEDS: NSS 1000 IV (04:01)
[2025-03-20] MEDS: VALIUM INJECTION 5 MG IV ×4 (04:21→22:15)
[2025-03-20] MEDS: ROXICODONE 20 MG PO ×4 (04:32→20:05)
[2025-03-20 04:37] LABS: Hematocrit 40.3 % (39.0-52.0); Hemoglobin 13.6 g/dL (13.0-18.0); Mean Corp Hgb Conc. 33.7 g/dL (33.0-37.0); Mean Corpuscular Volume 91.4 fL (80.0-94.0); Nucleated Red Blood Cells % 0 % (-); Platelet Count 173 10^3/uL (130-400); Red Cell Dist. Width 12.8 % (11.5-14.5)
[2025-03-20 05:01] LABS: ALT (SGPT) 29 U/L (0-50); AST (SGOT) 18 U/L (17-59); Albumin 3.8 g/dl (3.5-5.0); Alkaline Phosphatase 74 U/L (38-126); Blood Urea Nitrogen 12 mg/dl (9-20); Calcium 8.9 mg/dl (8.4-10.2); Carbon Dioxide 26 mmol/L (22-30); Chloride 109 mmol/L (98-107); Estimated Creatinine Clearance > 125 ml/min; Glucose 96 mg/dl (70-99); Magnesium 2.0 mg/dl (1.6-2.3); Potassium 4.6 mmol/L (3.5-5.1); Sodium 138 mmol/L (135-145); Total Protein 5.9 g/dl (6.3-8.2); eGFR > 60.00
--- NOTE | 2025-03-20 07:44 | W.PN.INTV ---
Today's Communication / Plan
Recommendations
Continue Precedex drip, weaning to off as he clinically improves
Start budesonide
DuoNebs QID
Hold off on systemic steroids for now given risk of worsening his agitation, restlessness and hypertension
Microdosing Subutex protocol with supportive care
MSAS
Phenobarbital protocol with thiamine + folic acid
Continue ICU level of care. Will consider downgrade to IMU if he is successfully weaned off Precedex and remains clinically stable.
Assessment
-
Assessment: 40-year-old male with a past medical history of polysubstance abuse with use of Percocets, kratom, THC as well as alcohol use disorder, history of alcohol withdrawal seizure (February 2023), chronic Suboxone use, anxiety, depression,
ADHD and history of benzodiazepine abuse (2022) who presents with alcohol withdrawal symptoms. Last drink was >24 hours prior to arrival. Last use of Percocet 2 nights prior. Reports heavy drug use over the last 3-4 months. He has been drinking
1/5 of vodka a day and around 8 shots of vodka on top of that with kratom 1 tab every 3 hours totaling 640 mg when he is unable to get Percocets. Also smoking cigarettes 1-2 packs/day. He was actively wheezing in the ER. He was restless and
tremulous. He was afebrile in the ER, pulse rate 75, respiratory rate 19, he was hypertensive to 194/110 and he was saturating 97% on room air. Labs showed mild leukocytosis to 11.6, ALT 55, no signs of UTI on urinalysis and drug screen was
positive for marijuana, negative for alcohol and beta-hydroxybutyrate was slightly elevated at 0.47. His flu swab was negative. CXR showed no acute cardiopulmonary process. He was given 1 L NS 0.9%, 5 mg diazepam, 0.1 mg clonidine and 4 mg
Zofran. Given his high blood pressure with tremors and concern for an impending alcohol withdrawal seizure and also given his symptoms of opioid withdrawal, he was admitted to the ICU for further care. Cardiac Care Nurse service consulted for additional
management/recommendations.
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
benzodiazepine abuse (2022)
Impression:
#Alcohol withdrawal
#Mild transaminitis likely due to alcohol use
#Opioid withdrawal
#Wheezing likely due to underlying RAD vs asthma
#History of alcohol use disorder with previous alcohol withdrawal seizure (February 2023)
#Opioid use disorder on chronic Suboxone although still uses Percocet and then uses kratom when he is unable to get Percocet pills
#Active tobacco use disorder ()
#THC use
#Anxiety/depression
#History of ADHD
Plan:
- Given his tremors with symptoms of opioid withdrawal, alcohol withdrawal and hypertension, continue Precedex drip and wean off as he clinically improves
- Continue with microdosing Subutex protocol
- Supportive care with prn Zanaflex, Subutex, oxycodone, Tylenol, and Imodium
- Continue with MSAS as he is at risk of alcohol withdrawal seizure
- Continue with phenobarbital protocol
- Continue thiamine + folic acid
- prn diazepam for anxiety
- Aspiration precautions; keep HOB >30-45�
- Maintain SpO2 >90-94%, using supplemental O2 as needed
- Today he is wheezing and sounds rhonchorous on exam - -> CXR shows no evidence of pneumonia. Likely all upper airway with increased phlegm and bronchoconstriction.
- Continue DuoNebs QID and I will add Budesonide BID
- Given his agitation with hypertension, we will avoid systemic steroids for now as this could potentially worsen his symptoms and prolong hospital stay
- prn nebulized bronchodilators
- Maintain MAP>65
- Ok to stop IVF as he has good appetite and is tolerating diet with no nausea or vomiting
- Replete electrolytes with K>4, Mg>2
- Maintain euglycemia with goal BG 140-180
- Trend H/H and transfuse if needed to keep Hb>7g/dL; keep plt>20k, unless there is concern for bleeding then keep plt>50k
- Incentive spirometer encouraged 10x per hour for at least 4 hrs a day
- DVT ppx: LMWH
Patient remains critically ill. If Precedex drip is able to be weaned off and he remains stable for at least 4 to 6 hours, then will downgrade to IMU level of care. For now, continue with ICU level care.
Critical care statement: A total of 41 minutes of critical care time was provided for this patient today. This includes management of unstable vital signs, evaluation of the patient at bedside, reviewing the patient's pertinent medical records
including radiographs, microbiology, laboratory evaluations, and discussion with primary team, consultants, pharmacy, nutrition, physical therapy, case management, charge nurse, critical care nursing, and respiratory therapy.
Subjective Dataa
Subjective Data
Date of Service:
Date of Service: March 20, 2025
Chief Complaint: Cardiac Care Nurse Follow Up
Subjective:
Patient seen and evaluated today at bedside. Remains on Precedex at 0.1 mcg/kg/hr. He says he feels much better today, is less shaky and less anxious. Afebrile overnight. He is hungry and has ordered [employer] to be delivered here to the
hospital.
Review of Systems
General: Other (Negative unless mentioned above)
Objective Data
Data Reviewed
Vital Signs / I&O / Oxygen:
Vital Signs
Temp Pulse Resp BP Pulse Ox
97.4 F 46 15 112/73 99
03/20/25 04:02 03/20/25 07:15 03/20/25 07:15 03/20/25 07:00 03/20/25 07:15
Intake and Output
03/19/25 03/20/25 03/21/25
06:59 06:59 06:59
Intake Total 400 / 500 2547.4 / 2547.4
Output Total 300 / 300 4425 / 4425
Balance 100 / 200 -1877.6 / -1877.6
SaO2 99
Physical Exam
General: Respiratory Distress (negative), Comfortable, Chills (negative), Sweats (Mild) and Good Appetite
HEENT: Normocephalic and Anicteric
Cardiovascular: S1-S2 and Peripheral Edema (negative)
Respiratory: Wheeze (Juana Diaz upon expiration bilaterally), Crackles (Bilateral), Rhonchi (Bilateral) and Non-Labored Respirations
GI: Soft, Non Distended, Non Tender and Normal Bowel Sounds
Neurology: Awake, Alert, Oriented and Tremors (Occasionally seen in all 4 extremities)
Skin: Warm, Dry, Cyanosis (negative) and Jaundice (negative)
Labs/Micro/Reports
Lab Data
03/20/25 04:26
03/20/25 04:26
Microbiology
03/19/25 00:05 Nasal Swab Influenza Types A & B (SHWETHA) - Final
Negative for Influenza A & B, NAAT
Negative results must be combined with clinical observations
and patient history.
Nucleic Acid Amplification test (NAAT)performed on the
[employer] platform.
[2025-03-20] MEDS: MIRALAX 17 GRAMS PO (07:57)
[2025-03-20] MEDS: FOLVITE 1 MG PO (07:57)
[2025-03-20] MEDS: PHENOBARBITAL 97.5 MG IV ×3 (07:57→22:14)
[2025-03-20] MEDS: SUBUTEX 2 MG SL ×3 (07:57→17:57)
[2025-03-20] MEDS: SENOKOT-S 1 TABLET PO (07:57)
[2025-03-20] MEDS: DUONEB 3 ML INH ×3 (10:46→20:37)
[2025-03-20] MEDS: PULMICORT 0.25 MG INH (10:47)
--- NOTE | 2025-03-20 11:50 | PTCARENOTE ---
Precedex off. Pt frequently asks when he can have his meds or PRN meds, reviewed med list with pt multiple times and plan of care. Pt drinks and eats large amts of food throughout day, orders multiple trays from cafeteria and also ordered [employer]
from [employer]. Voiding large amts yellow urine, IVF dc'd.
--- NOTE | 2025-03-20 13:27 | CM ---
storage garage manager met with patient today and plan is for inpatient treatment facility, patient has selected [facility] in [place], , , clinical faxed yesterday per pervious casework specialist notes. Patient needs to finish
Phenobarbital taper prior to placement.
Plan; Inpatient drug and alcohol treatment center. Patient has selected [facility] in [place].
--- NOTE | 2025-03-20 15:13 | W.PN.HOSP.TC ---
Addendum entered and electronically signed by Kylah Almodovar MD 03/20/25 15:30:
I saw and evaluated the patient independently. I reviewed and discussed the resident�s note and agree with findings and plan as documented by Dr. Penaloza.
GENERAL: well developed, well nourished, male --still restless but improving
HEENT: NC/AT
HEART: regular rate and rhythm, +S1, +S2
LUNGS : wheezes bilaterally
ABDOM: soft, nontender, nondistended, + bowel sounds
EXT: no cyanosis, clubbing, or edema
NEUROLOGIC: tremors resolved and restlessness improving
Chronic alcohol abuse/dependency with acute withdrawal symptoms--cont MSAS, thiamine, folate, IVF, antiemetics--daily / of vodka--cont phenobarbital taper--precedex started by photovoltaic solar cell designer--wean to off as tolerated--apprec photovoltaic solar cell designer/psych
input--wants inpt detox and has a bed at [facility]
Opioid dependency with withdrawal symptoms due to kratom, Percocet use--cont COWS protocol and buprenorphine microdosing (pt takes 4-5 pills of 30mg oxycodone daily, plus Kratom)--Imodium, zofran, clonidine--watch QTc
constipation--cont bowel regimen
Left upper quadrant abdominal pain associated with diarrhea-- Abdominal x-ray shows nonobstructive intestinal bowel gas pattern, widespread colonic stool --cancel Imodium and order MiraLAX + senna
Diffuse wheezing bilaterally--likely from smoking/vaping--cont duonebs, IS--add pulmicort nebs--would hold on IV steroids at this point
Nicotine abuse-- Continue on nicotine patch--Dr. Penaloza counselled pt to quit smoking
Marijuana abuse-- Counseled on marijuana cessation
DVT proph
code status--FULL CODE
Total Critical Care Time 35 minutes. I was immediately available to the patient and staff. I personally examined, reviewed labs, diagnostic images/reports, interpretations, treatment plans, discussed patient care with other providers and family
or caregivers (if patient is unable to make decisions), entered orders as appropriate and documented the medical record.
Original Note:
Today's Communication/Plan
-
- continue on precedex drip, msas protocol, optiate withdrawl protocol, check if pulmicort and duonebs working for patients cough and wheeeze
Assessment / Plan
Assessment / Plan
Chronic alcohol abuse with mild withdrawal symptoms:
-Patient drinks whole bottle of vodka every day
- Has fine tremors on physical examination and seems anxious
- Continue patient on MSAS protocol
- Thiamine, folate, IV fluids, phenobarbital taper
- Monitor electrolytes,
- Regular diet
-Keep potassium above 4 and magnesium above 2
-Patient started on Precedex drip by photovoltaic solar cell designer for tremors and hypertension, will wean off as he clinically improves
- Consulted psychiatrist
- Intensivisit following
Opioid withdrawal symptoms due to kratom, Percocet use:
- Monitor COWS score every day, on arrival to ED it was 15 today it is 5 indicating mild withdrawal
- Continue microdosing buprenorphine
- For symptoms of opioid withdrawal such as diarrhea use loperamide, for nausea vomiting use Zofran, clonidine for autonomic hyperactivity
- Oxycodone as needed for pain
- Zanaflex as needed for diaphoresis and restlessness
- Ordered miralax, senna, and dulcolax to help patient have bowel movement since he has not had one in 4 days
Left upper quadrant abdominal pain associated with diarrhea:
- There is mild tenderness to left upper quadrant abdominal palpation
- Abdominal x-ray shows nonobstructive intestinal bowel gas pattern, widespread colonic stool which is consistent with overflow diarrhea due to retained stool, will cancel loperamide and order MiraLAX + senna
- Continue patient on IV fluids
Diffuse wheezing bilaterally:
- Differential diagnosis is asthma versus COPD versus bronchitis
- Encouraged incentive spirometer
- Ordered DuoNebs qid for patient to help relieve bronchoconstriction
- started pulmicort BID to help relieve inflammation in patients airway
- Ordered tesslon pearls
Nicotine abuse:
- Continue on nicotine patch
Marijuana abuse:
- Counseled on marijuana cessation
Anticipated Discharge: Today
Subjective/Interval History
-
Date of Service: March 20, 2025
- No overnight events
- Only medical complaints is regarding wheezing and cough that have been persistent since yesterday. No fever lacrimation, diarrhea, weight loss, hallucinations, altered mental status, weakness, numbness.
Objective Data
-
Labs:
Laboratory Results
03/20/25
04:26
WBC 6.3
Hgb 13.6
Hct 40.3
Plt Count 173
Sodium 138
Potassium 4.6
Chloride 109 H
Carbon Dioxide 26
BUN 12
Creatinine 0.8
Glucose 96
Calcium 8.9
Total Bilirubin 0.4
AST 18
ALT 29
Alkaline Phosphatase 74
Vital Signs:
Vital Signs
Temp Pulse Resp BP Pulse Ox
97 F 82 17 136/80 96
03/20/25 08:00 03/20/25 13:30 03/20/25 13:30 03/20/25 12:00 03/20/25 13:30
I&O
03/19/25 03/20/25 03/21/25
06:59 06:59 06:59
Intake Total 400 / 500 2547.4 / 2547.4 1250.8 / 1250.8
Output Total 300 / 300 4425 / 5125 1600 / 1600
Balance 100 / 200 -1877.6 / -2577.6 -349.2 / -349.2
Review of Systems
-
History Source: Patient
All other systems: Reviewed and negative
Physical Exam
-
General: Well Developed
Respiratory: Wheezes (Bilateral diffuse wheezes)
Cardiac: Regular Rhythm and S1/S2
GI: Soft, Nondistended, Normal Bowel Sounds and Other (Mild left upper quadrant tenderness)
Musculoskeletal: No Clubbing, No Cyanosis and No Edema
Skin: Warm and Dry
Neuro: AO x 3
Data Reviewed
-
Labs: Labs Reviewed by me and Discussed with Physician
[2025-03-20] MEDS: LOVENOX SC (17:34)
--- NOTE | 2025-03-20 20:00 | PTCARENOTE ---
Assumed care of patient. Patient is resting in bed upon assessment. He is alert and oriented x3, afebrile, complaining of 7/10 pain in his lower back. PRN oxycodone was given for his pain which patient states helped. His lungs are clear on room air,
no complaints of shortness of breath. He is in normal sinus rhythm with blood pressures ranging from 115-130 systolic. No edema on exam. No complaints of chest pain. Abdomen is soft and nontender, no complaints of abdominal pain, bowel sounds are
present. Patient is continent to bowel and bladder. No skin issues noted. IV in R forearm is patent.
[2025-03-20] MEDS: SENOKOT-S PO (20:10)
[2025-03-20] MEDS: PULMICORT 0.5 MG INH (20:37)
[2025-03-20] MEDS: SUBUTEX 4 MG SL (22:02)
[2025-03-20] MEDS: SEROQUEL 200 MG PO (22:03)
[2025-03-21] VITALS (7 sets, daily range): BP systolic 101–135; BP diastolic 50–84; BMI 33.2; BMI 33.6
--- NOTE | 2025-03-21 | PTCARENOTE ---
No change in assessment. Patient's pain is under control, no oxycodone needed at this time per patient report.
[2025-03-21] MEDS: THIAMINE INJECTION IV ×3 (00:13→15:31)
[2025-03-21] MEDS: OXYCONTIN (CONTROLLED RELEASE) PO (00:32)
--- NOTE | 2025-03-21 04:00 | PTCARENOTE ---
No change in assessment. Patient resting comfortably in bed.
[2025-03-21] MEDS: VALIUM INJECTION 5 MG IV (04:30)
[2025-03-21] MEDS: ROXICODONE 20 MG PO ×2 (04:30→10:12)
[2025-03-21 04:33] LABS: Hematocrit 44.4 % (39.0-52.0); Hemoglobin 14.7 g/dL (13.0-18.0); Mean Corp Hgb Conc. 33.1 g/dL (33.0-37.0); Mean Corpuscular Volume 93.3 fL (80.0-94.0); Nucleated Red Blood Cells % 0 % (-); Platelet Count 178 10^3/uL (130-400); Red Cell Dist. Width 12.6 % (11.5-14.5)
[2025-03-21 05:37] LABS: ALT (SGPT) 26 U/L (0-50); AST (SGOT) 21 U/L (17-59); Albumin 4.3 g/dl (3.5-5.0); Alkaline Phosphatase 76 U/L (38-126); Blood Urea Nitrogen 14 mg/dl (9-20); Calcium 9.3 mg/dl (8.4-10.2); Carbon Dioxide 25 mmol/L (22-30); Chloride 107 mmol/L (98-107); Estimated Creatinine Clearance > 125 ml/min; Glucose 89 mg/dl (70-99); Magnesium 2.0 mg/dl (1.6-2.3); Potassium 4.2 mmol/L (3.5-5.1); Sodium 136 mmol/L (135-145); Total Protein 6.6 g/dl (6.3-8.2); eGFR > 60.00
--- NOTE | 2025-03-21 07:34 | W.PN.INTV ---
Today's Communication / Plan
Recommendations
Continue nebulizer regimen
Buprenorphine protocol
Phenobarbital taper
Folate/thiamine
Out of bed to chair, ambulate
Okay for transfer out of ICU. We will sign off. Please call with questions
Assessment
-
Assessment: 40-year-old male with a past medical history of polysubstance abuse with use of Percocets, kratom, THC as well as alcohol use disorder, history of alcohol withdrawal seizure (February 2023), chronic Suboxone use, anxiety, depression,
ADHD and history of benzodiazepine abuse (2022) who presents with alcohol withdrawal symptoms. Last drink was >24 hours prior to arrival. Last use of Percocet 2 nights prior. Reports heavy drug use over the last 3-4 months. He has been drinking
1/5 of vodka a day and around 8 shots of vodka on top of that with kratom 1 tab every 3 hours totaling 640 mg when he is unable to get Percocets. Also smoking cigarettes 1-2 packs/day. He was actively wheezing in the ER. He was restless and
tremulous. He was afebrile in the ER, pulse rate 75, respiratory rate 19, he was hypertensive to 194/110 and he was saturating 97% on room air. Labs showed mild leukocytosis to 11.6, ALT 55, no signs of UTI on urinalysis and drug screen was
positive for marijuana, negative for alcohol and beta-hydroxybutyrate was slightly elevated at 0.47. His flu swab was negative. CXR showed no acute cardiopulmonary process. He was given 1 L NS 0.9%, 5 mg diazepam, 0.1 mg clonidine and 4 mg
Zofran. Given his high blood pressure with tremors and concern for an impending alcohol withdrawal seizure and also given his symptoms of opioid withdrawal, he was admitted to the ICU for further care. Snow Plow Operator service consulted for additional
management/recommendations.
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
benzodiazepine abuse (2022)
Impression:
#Alcohol withdrawal
#Mild transaminitis likely due to alcohol use
#Opioid withdrawal
#Wheezing likely due to underlying RAD vs asthma
#History of alcohol use disorder with previous alcohol withdrawal seizure (February 2023)
#Opioid use disorder on chronic Suboxone although still uses Percocet and then uses kratom when he is unable to get Percocet pills
#Active tobacco use disorder (1�2 PPD)
#THC use
#Anxiety/depression
#History of ADHD
Plan/recommendations
At this time, patient appears to be improved objectively and subjectively
He has been off Precedex since yesterday p.m., overnight
Remains on phenobarbital taper
Continues with microdosing buprenorphine protocol for opioid use
Continue thiamine/folic acid
As needed diazepam. Will change to p.o.
Patient tolerating oral intake
Wheezing improved today
Ongoing tobacco use noted. Discussed importance of tobacco cessation
For now, continue with as needed nebulized therapy, DuoNebs, budesonide
No indication for steroids
DVT prophylaxis: Enoxaparin
GI prophylaxis: Not indicated
Okay for transfer out of ICU
Ongoing disposition efforts
Reviewed with critical care nursing, respiratory care, pharmacy, primary service, case management
For transfer out of ICU, okay to transfer to [facility]
We will sign off please call with questions
Subjective Dataa
Subjective Data
Date of Service:
Date of Service: March 21, 2025
Chief Complaint: Snow Plow Operator Follow Up
Subjective:
Patient is feeling improved today. Denies significant shortness of breath, chest pain, nausea, abdominal pain. Ambulating without difficulty. Currently receiving nebulized treatment in the a.m.
Objective Data
Data Reviewed
Vital Signs / I&O / Oxygen:
Vital Signs
Temp Pulse Resp BP Pulse Ox
98.4 F 52 16 126/83 98
03/21/25 04:00 03/21/25 06:01 03/20/25 20:41 03/21/25 04:00 03/20/25 20:00
Intake and Output
03/20/25 03/21/25 03/22/25
06:59 06:59 06:59
Intake Total 2547.4 / 2547.4 1490.8 / 1490.8
Output Total 4425 / 5125 1999
Balance -1877.6 / -2577.6 -509.2 / -509.2
SaO2 98
Physical Exam
General: Comfortable
HEENT: Normocephalic and Anicteric
Cardiovascular: S1-S2, Regular Rhythm, Murmur (n), Rub (n) and Peripheral Edema (n)
Respiratory: Wheeze (mild), Crackles (n), Rhonchi (n), Non-Labored Respirations and Stridor (n)
GI: Soft, Non Distended and Non Tender
Neurology: Awake, Alert and No Motor Deficits (Moves all extremities)
Skin: Warm, Dry, Cyanosis (negative) and Jaundice (negative)
Labs/Micro/Reports
Lab Data
03/21/25 04:24
03/21/25 04:24
Microbiology
03/19/25 00:05 Nasal Swab Influenza Types A & B (SHWETHA) - Final
Negative for Influenza A & B, NAAT
Negative results must be combined with clinical observations
and patient history.
Nucleic Acid Amplification test (NAAT)performed on the
[employer] platform.
[2025-03-21] MEDS: DUONEB 3 ML INH ×3 (07:35→19:42)
[2025-03-21] MEDS: PULMICORT 0.5 MG INH ×2 (07:35→19:42)
--- NOTE | 2025-03-21 07:38 | W.PN.HOSP.TC ---
Addendum entered and electronically signed by Hussain Hart MD 03/21/25 20:55:
Attending Addendum-
I saw and evaluated the patient. I reviewed the resident�s note and agree with findings and plan as documented in the resident�s note. Sub: feels greatly improved. still with mid tremors. Enthusiastic about getting to rehab. No CP palps fevers
chills. Full 12 point ROS reviewed and negative except as documented Exam: Vitals reviewed in chart GEN-NAD heart RRR lungs clear abd soft LE no edema Neuro AAO x 3 no resting tremor
Plan:
#AUD/acute withdrawal-
-cont MSAS 0-2
-resolving
-cont thiamine, folate, antiemetics sxs control --daily / of vodka--
-cont phenobarbital quick taper- d/w pharm must be off phenobarb to enter [facility]
-DC Precedex
-transfer to tele
# Opioid dependency with withdrawal symptoms due to kratom, Percocet use--
-COWS dc'd
-cont buprenorphine microdosing with taper off of oxycodone
-Imodium, zofran, clonidine--watch QTc
# constipation-cont bowel regimen
#Nicotine abuse-Continue on nicotine patch-counselled pt to quit smoking
# Marijuana abuse-Counseled on marijuana cessation
# ?depression- would favor DC seroquel if able
DVT proph
code status--FULL CODE
Dispo DC to [facility] when able to be weaned off phenobarbital safely
Time spent coordinating care, review of plan of care with resident, personally reviewed records in EMR, med rec, consults, notes, labs, radiology, d/w nursing � 51 mins
Original Note:
Today's Communication/Plan
-
- Observe patients vitals for 24 hours on phenobarbital and no diazepam, then if vitals stable and he is feeling ok, discharge him with subutex 16 mg , oxy dc'd today
Assessment / Plan
Assessment / Plan
Chronic alcohol abuse with mild withdrawal symptoms:
- d/c fluids as patient is adeuqatly hydrated
- d/c diazepam 5 mg and ativan 1 mg is PRN
- Monitor electrolytes
- Regular diet
-Keep potassium above 4 and magnesium above 2
- Consulted psychiatrist
- Intensivisit consulted
- Patient is weaned off precedex drip, stable vitals for more than 24 hours, no autonomic instability, eating and drinking well, labs are normal,
- before patient is discharged to [facility], must be off subutex as per mattress spring encaser notes
- Called [facility] and they stated he needs finish phenobarbital, have a script for Subutex 16 mg a day, and be off the oxycodone.
- Talked to pharmacy, they recommend 24 more hours of phenobarbital without diazepam before discharging
- Discharged patient with oral folate 1mg and thiamine 100 mg
Opioid withdrawal symptoms due to kratom, Percocet use:
- Monitor COWS score every day, on arrival to ED it was 15 today it is 5 indicating mild withdrawal
- For symptoms of opioid withdrawal such as diarrhea use loperamide, for nausea vomiting use Zofran, clonidine for autonomic hyperactivity
- Zanaflex as needed for diaphoresis and restlessness
- Patient had a bowel movement yesterday night
- Last dose of oxycodone today, afterwards d/c
- Patient is on the 8 mg BID buprenorphine dose today
- Buprenorphine prescription needed 16 mg per day for outpatient discharge
Left upper quadrant abdominal pain associated with diarrhea:
- There is mild tenderness to left upper quadrant abdominal palpation
- Abdominal x-ray shows nonobstructive intestinal bowel gas pattern, widespread colonic stool which is consistent with overflow diarrhea due to retained stool, will cancel loperamide and order MiraLAX + senna
Diffuse wheezing bilaterally:
- Differential diagnosis is asthma versus COPD versus bronchitis
- Encouraged incentive spirometer
- Ordered DuoNebs qid for patient to help relieve bronchoconstriction and pulmicort in hospital BID to help relieve inflammation in patients airway, ordered albuterol HFA as rescue inhaler for discharge.
- Ordered tesslon pearls for cough
Nicotine abuse:
- Continue on nicotine patch
Marijuana abuse:
- Counseled on marijuana cessation
Anticipated Discharge: Today
Subjective/Interval History
-
Date of Service: March 21, 2025
- No overnight events
- Only medical complaints is regarding wheezing and cough that have been persistent since yesterday. No fever lacrimation, diarrhea, weight loss, hallucinations, altered mental status, weakness, numbness.
Objective Data
-
Labs:
Laboratory Results
03/21/25
04:24
WBC 7.0
Hgb 14.7
Hct 44.4
Plt Count 178
Sodium 136
Potassium 4.2
Chloride 107
Carbon Dioxide 25
BUN 14
Creatinine 0.8
Glucose 89
Calcium 9.3
Total Bilirubin 0.5
AST 21
ALT 26
Alkaline Phosphatase 76
Vital Signs:
Vital Signs
Temp Pulse Resp BP Pulse Ox
98.4 F 68 15 126/83 99
03/21/25 04:00 03/21/25 07:37 03/21/25 07:37 03/21/25 04:00 03/21/25 07:37
I&O
03/20/25 03/21/25 03/22/25
06:59 06:59 06:59
Intake Total 2547.4 / 2547.4 1490.8 / 1490.8
Output Total 4422 / 5125 1999
Balance -1877.6 / -2577.6 -509.2 / -509.2
Review of Systems
-
History Source: Patient
All other systems: Reviewed and negative
Physical Exam
-
General: Well Developed
Respiratory: Wheezes (Bilateral diffuse wheezes)
Cardiac: Regular Rhythm and S1/S2
GI: Soft, Nondistended, Normal Bowel Sounds and Other (Mild left upper quadrant tenderness)
Musculoskeletal: No Clubbing, No Cyanosis and No Edema
Skin: Warm and Dry
Neuro: AO x 3
Data Reviewed
-
Labs: Labs Reviewed by me and Discussed with Physician
[2025-03-21] MEDS: LUMINAL 64.8 MG PO ×3 (07:44→20:50)
[2025-03-21] MEDS: FOLVITE 1 MG PO (07:44)
[2025-03-21] MEDS: SENOKOT-S 1 TABLET PO ×2 (07:45→20:19)
[2025-03-21] MEDS: SUBUTEX 4 MG SL ×3 (07:45→17:56)
[2025-03-21] MEDS: OXYCONTIN (CONTROLLED RELEASE) 20 MG PO ×2 (07:45→15:30)
[2025-03-21] MEDS: MIRALAX 17 GRAMS PO (07:46)
[2025-03-21] MEDS: ZANAFLEX 2 MG PO ×2 (10:09→20:25)
--- NOTE | 2025-03-21 10:19 | PTCARENOTE ---
Rec'd care of patient at 0700. Patient alert and oriented. Anxious at times. MSAS 2-4; intermittent mild tremors and restlessness. SB/NSR, rate in the 50-70's. Pulse ox 100% on RA. Lung sounds diminished, rhonchi throughout. +BS. Appetite good.
Voiding via bathroom. Peripheral site capped. Ambulatory independently in room. Plan of care discussed with Boiler Maker and Resident.
--- NOTE | 2025-03-21 11:07 | PTCARENOTE ---
Patient downgraded to med/surg level of care.
--- NOTE | 2025-03-21 11:08 | PTCARENOTE ---
PT/OT at bedside.
[2025-03-21] MEDS: ATIVAN 1 MG PO ×2 (12:17→20:19)
--- NOTE | 2025-03-21 13:30 | CM ---
Patient being transferred to Room 420. BCARES involved in case. [facility] in [place] is reviewing patient's records. Additional records faxed on this date 03/21/25. They will not make a final determination until the day of discharge when they
receive updated records and discharge MAR. They will not accept patient if he is on any narcotics. Currently he is. Attending resident notified. This CM spoke with General intake at [facility]. Numbers as follows:
General intake-Dane-@ [phone]
Ancillary # if Dane is unavailable @ [phone]
Admissions @ [phone], prompt for admissions
.
--- NOTE | 2025-03-21 13:39 | TRANSFER ---
Report given. Patient sent via transport to , with belongings.
[2025-03-21] MEDS: DUONEB INH (13:42)
[2025-03-21] MEDS: LOVENOX SC (17:56)
[2025-03-21] MEDS: SEROQUEL 200 MG PO (20:50)
--- NOTE | 2025-03-21 20:55 | W.PN.UPDATE ---
Update Note
Progress Note Update
pt seen in am to asses for progress. very irritable, wants to know why he is still here. had hoped to be able to get on to rehab by now. aware of process, knows he needs to have completed detox before he can go to [facility] in [place]. States he is
thinking about just leaving and going there on his own, but encouraged to stay and educated that he is likely to be turned away. (seen in afternoon as well)
[2025-03-22 07:00] VITALS: BP 108/65
[2025-03-22] MEDS: SUBUTEX 8 MG SL ×2 (07:56→17:00)
[2025-03-22] MEDS: NICODERM TRANSDERMAL 21 MG TRANSDERM (07:57)
[2025-03-22] MEDS: FOLVITE 1 MG PO (07:57)
[2025-03-22] MEDS: LUMINAL 64.8 MG PO ×2 (07:57→17:00)
[2025-03-22] MEDS: VITAMIN B1 100 MG PO (07:57)
[2025-03-22] MEDS: MIRALAX PO (07:58)
[2025-03-22] MEDS: SENOKOT-S PO (07:59)
[2025-03-22] MEDS: ATIVAN 1 MG PO (08:02)
[2025-03-22] MEDS: PULMICORT 0.5 MG INH (08:04)
[2025-03-22] MEDS: DUONEB 3 ML INH ×3 (08:04→15:25)
--- NOTE | 2025-03-22 10:37 | CM ---
CM reviewed chart, reviewed with Resident, ARTHUR Malagon, and [facility] ([facility]).
Patient accepted for discharge today, [facility] will provide transport 6:15 p.m., provided nursing station number to call when on way.
Per [facility], requesting two weeks of Subutex for patient to d/c with- update to Resident.
Update to Nurse with transport time.
CM will continue to follow.
Plan; [place] [facility] 6:15 p.m. transport
[2025-03-22] MEDS: TYLENOL 650 MG PO (10:57)
[2025-03-22] MEDS: ZANAFLEX 2 MG PO (10:57)
--- NOTE | 2025-03-22 11:35 | VATNOTE ---
IV removed from pt's R arm b/c surrounding area was swollen and reddened. Nothing continuous running through IV at time of assessment. Pt's R arm is more swollen than the L. PCN, resident and MD made aware.
--- NOTE | 2025-03-22 12:32 | W.PN.UPDATE ---
Update Note
Progress Note Update
patient seen chart reviewed. spoke with nursing and reviewed meds with pharmacy. patient is acknowledging the need for help with detox sobriety and with managing his anger. he is set for dc to [facility] later today. he seemed to want psych meds to be
prescribed in this moment fearing that there would be nonone at [facility] to address this but i reassured him that they have the capacity to refer him to psych. would prefer he wait until he has as few more days sober before being prescribed meds
perhaps for bipolar. did not make any changes in meds. will alert security to the fact that his car is in our drive here at and it will be there for about three weeks til he is dc from rehab. gave him the name of a potential psychiatrist in
[facility] as that is where he would like to be seen after dc. he plans on returning to his job [employer] after dc from rehab.
[2025-03-22 13:13] LABS: Hematocrit 44.4 % (39.0-52.0); Hemoglobin 14.8 g/dL (13.0-18.0); Mean Corp Hgb Conc. 33.3 g/dL (33.0-37.0); Mean Corpuscular Volume 89.7 fL (80.0-94.0); Nucleated Red Blood Cells % 0 % (-); Platelet Count 191 10^3/uL (130-400); Red Cell Dist. Width 12.5 % (11.5-14.5)
[2025-03-22 13:38] LABS: ALT (SGPT) 29 U/L (0-50); AST (SGOT) 24 U/L (17-59); Albumin 4.8 g/dl (3.5-5.0); Alkaline Phosphatase 86 U/L (38-126); Blood Urea Nitrogen 19 mg/dl (9-20); Calcium 9.4 mg/dl (8.4-10.2); Carbon Dioxide 27 mmol/L (22-30); Chloride 102 mmol/L (98-107); Estimated Creatinine Clearance 122 ml/min; Glucose 94 mg/dl (70-99); Potassium 4.5 mmol/L (3.5-5.1); Sodium 137 mmol/L (135-145); Total Protein 7.0 g/dl (6.3-8.2); eGFR > 60.00
--- NOTE | 2025-03-22 13:45 | W.PN.HOSP.TC ---
Addendum entered and electronically signed by Hussain Hart MD 03/22/25 21:02:
Attending Addendum-
I saw and evaluated the patient. I reviewed the resident�s note and agree with findings and plan as documented in the resident�s note. Sub: feels great. still with mild tremors. Enthusiastic about getting to rehab today. No CP palps fevers chills.
Full 12 point ROS reviewed and negative except as documented Exam: Vitals reviewed in chart GEN-NAD heart RRR lungs clear abd soft LE no edema Neuro AAO x 3 no resting tremor
Plan:
#AUD/acute withdrawal-
-MSAS 0
-resolving
-cont thiamine, folate, antiemetics sxs control --daily / of vodka
-phenobarbital quick taper- d/w pharm must be off phenobarb to enter [facility]
-off Precedex
# Opioid dependency with withdrawal symptoms due to kratom, Percocet use--
-COWS-3
-cont buprenorphine microdosing, tapered off of oxycodone
-Imodium, zofran, clonidine--watch QTc
# constipation-cont bowel regimen
#Nicotine abuse-Continue on nicotine patch-counselled pt to quit smoking
# Marijuana abuse-Counseled on marijuana cessation
# ?depression- would favor DC seroquel if able
DVT proph
code status--FULL CODE
Dispo DC to [facility]
Time spent coordinating care, DC planning, review of DC plan of care with resident, transition of care, review of records, med rec/scripts sent electronically, consults, notes, d/w consultants, nursing, family, and CM� 31 mins >50% of this time was
devoted to counseling and coordination of care
Original Note:
Today's Communication/Plan
-
- Discharge to [facility] today
Assessment / Plan
Assessment / Plan
Chronic alcohol abuse with mild withdrawal symptoms:
- d/c fluids as patient is adeuqatly hydrated
- d/c diazepam 5 mg and ativan 1 mg is PRN
- Monitor electrolytes
- Regular diet
-Keep potassium above 4 and magnesium above 2
- Consulted psychiatrist
- Intensivisit consulted
- Patient is weaned off precedex drip, stable vitals for more than 24 hours, no autonomic instability, eating and drinking well, labs are normal,
- Patient will be discharged to [facility]
- Will finish phenobarbital taper today, script is written for for Subutex 16 mg a days 14 days, and his last dose of oxycodone last night
- He has been been stable of phenobarb without diazepam
- Discharged patient with oral folate 1mg and thiamine 100 mg, and script for subutex 16 mg x 14 days
- Psychiatry is consulted and state he is stable for dc
Opioid withdrawal symptoms due to kratom, Percocet use:
- Monitor COWS score every day, on arrival to ED it was 15 today it is 5 indicating mild withdrawal
- For symptoms of opioid withdrawal such as diarrhea use loperamide, for nausea vomiting use Zofran, clonidine for autonomic hyperactivity
- Zanaflex as needed for diaphoresis and restlessness
- Patient had a bowel movement yesterday night
- Last dose of oxycodone today, afterwards d/c
- Patient is on the 8 mg BID buprenorphine dose today, and will have 8 mg when he leaves [place]
- Buprenorphine prescription 16 mg per day written for outpatient discharge
Left upper quadrant abdominal pain associated with diarrhea:
- There is mild tenderness to left upper quadrant abdominal palpation
- Abdominal x-ray shows nonobstructive intestinal bowel gas pattern, widespread colonic stool which is consistent with overflow diarrhea due to retained stool, will cancel loperamide and order MiraLAX + senna
Diffuse wheezing bilaterally:
- Differential diagnosis is asthma versus COPD versus bronchitis
- Encouraged incentive spirometer
- Ordered DuoNebs qid for patient to help relieve bronchoconstriction and pulmicort in hospital BID to help relieve inflammation in patients airway, ordered albuterol HFA as rescue inhaler for discharge, and Spiriva on discharge for maintience.
- Ordered tesslon pearls for cough
Right hand/upper extrmeity swelling:
- Acute swelling of right dorsal surface of hand with erythema and tenderness on exam
- No fever, unstable vitals
- U/S doppler right extremity ordered to check for clots found in the right cephalic vein and superficial without any significant extent so just rest and warm compresses recc
Nicotine abuse:
- Continue on nicotine patch
Marijuana abuse:
- Counseled on marijuana cessation
Anticipated Discharge: Today
Subjective/Interval History
-
Date of Service: March 22, 2025
- No overnight events
- Only medical complaints is regarding wheezing and cough that have been persistent since yesterday. No fever lacrimation, diarrhea, weight loss, hallucinations, altered mental status, weakness, numbness.
- Patient was upset that he might not get into rehab today and almost left AMA after discussion with BCABREN
Objective Data
-
Labs:
Laboratory Results
03/22/25
12:48
WBC 8.7
Hgb 14.8
Hct 44.4
Plt Count 191
Sodium 137
Potassium 4.5
Chloride 102
Carbon Dioxide 27
BUN 19
Creatinine 1.0
Glucose 94
Calcium 9.4
Total Bilirubin 0.2
AST 24
ALT 29
Alkaline Phosphatase 86
Vital Signs:
Vital Signs
Temp Pulse Resp BP Pulse Ox
98.4 F 68 18 108/65 96
03/22/25 07:00 03/22/25 11:54 03/22/25 11:54 03/22/25 07:00 03/22/25 11:54
I&O
03/21/25 03/22/25 03/23/25
06:59 06:59 06:59
Intake Total 1490.8 / 1490.8 1100 / 1100
Output Total 1999
Balance -509.2 / -509.2 1099
Review of Systems
-
History Source: Patient
All other systems: Reviewed and negative
Musculoskeletal: Reports Other (right upper arm swelling, redness)
Physical Exam
-
General: Well Developed
Respiratory: Wheezes (Bilateral diffuse wheezes)
Cardiac: Regular Rhythm and S1/S2
GI: Soft, Nondistended and Normal Bowel Sounds
Musculoskeletal: No Clubbing, No Cyanosis and Other (there is swelling, erythema, tenderness of his right dorsal surface of hand extending up to his elbow. Pulses 2+, sensation intact.)
Skin: Warm and Dry
Neuro: AO x 3
Psych: Calm
[2025-03-22 15:00] VITALS: BP 126/68
[2025-03-22] MEDS: LOVENOX SC (16:48)
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
== END 2025-03-22 18:58 | DRG 897 ==
LOC: 4 WEST ACU 20:48
PROVIDERS: Clinical Nurse Specialist Family Health; Emergency Medicine; Physician Assistant Medical; ADMITTING PHYSICIAN Internal Medicine; ATTENDING PHYSICIAN Family Medicine; CONSULT PHYSICIAN Internal Medicine Critical Care Medicine; CONSULT PHYSICIAN Psychiatry & Neurology Psychiatry; EMERGENCY PHYSICIAN Student in an Organized Health Care Education/Training Program
DX: F10.131 Alcohol abuse with withdrawal delirium (principal); I82.611 Acute embolism and thrombosis of superficial veins of right upper extremity; F11.23 Opioid dependence with withdrawal; J45.909 Unspecified asthma, uncomplicated; K21.9 Gastro-esophageal reflux disease without esophagitis; F12.10 Cannabis abuse, uncomplicated; F90.9 Attention-deficit hyperactivity disorder, unspecified type; F41.9 Anxiety disorder, unspecified; F32.A Depression, unspecified; R56.9 Unspecified convulsions; F17.210 Nicotine dependence, cigarettes, uncomplicated; Z71.6 Tobacco abuse counseling; E66.9 Obesity, unspecified; Z68.33 Body mass index [BMI] 33.0-33.9, adult; Z11.52 Encounter for screening for COVID-19
CPT/HCPCS: 71046; 74018; 80053; 80306; 80307; 81003; 81015; 82010; 82077; 82248; 82977; 83735; 84100; 85025; 87502; 87811; 93005; 93971; 94640; 96361; 96374; 96375; 96376; 99291